=== PATIENT | male | born 1950 | race Caucasian/White ===

== ENCOUNTER → 2025-05-10 09:12 | Outpatient (REF) | payer OTHER, SELFPAY | LOC: RAD 09:12 | PROVIDERS: ATTENDING PHYSICIAN Student in an Organized Health Care Education/Training Program; FAMILY PHYSICIAN Family Medicine | DX: M81.0 Age-related osteoporosis without current pathological fracture (principal); D69.6 Thrombocytopenia, unspecified; E07.9 Disorder of thyroid, unspecified; E21.5 Disorder of parathyroid gland, unspecified; K90.0 Celiac disease; R77.8 Other specified abnormalities of plasma proteins; R79.89 Other specified abnormal findings of blood chemistry; R82.90 Unspecified abnormal findings in urine; R82.994 Hypercalciuria; S22.080D Wedge compression fracture of T11-T12 vertebra, subsequent encounter for fracture with routine healing; Z51.81 Encounter for therapeutic drug level monitoring; Z68.1 Body mass index [BMI] 19.9 or less, adult | CPT/HCPCS: 77080 ==